=== PATIENT | male | born 1950 | race Asian ===

== ENCOUNTER 2020-11-29 13:48 | Emergency (ER) | payer OTHER ==
[~2020-11-29] VITALS: Ht 182.9 cm; Wt 106.6 kg
[2020-11-29 13:55] VITALS: TEMP 98.2
[2020-11-29 14:40] LABS: PLATELET COUNT 130 K/uL (142-355)
[2020-11-29 14:49] LABS: POTASSIUM 3.7 mmol/L (3.6-5.2); SODIUM 137 mmol/L (136-145)
[2020-11-29 15:11] LABS: PARTIAL THROMBOPLASTIN TIME 27.9 SECONDS (24.5-33.6)
[2020-11-29 17:45] VITALS: BP 116/68
== END 2020-11-29 18:15 | disposition home or self-care (01) ==
LOC: ED 13:48
PROVIDERS: Hospitalist
DX: J44.1 Chronic obstructive pulmonary disease with (acute) exacerbation (principal); J40 Bronchitis, not specified as acute or chronic; N18.9 Chronic kidney disease, unspecified; Z20.828 Contact with and (suspected) exposure to other viral communicable diseases
CPT/HCPCS: 36415; 36600; 80053; 82550; 82805; 83605; 83880; 84484; 85027; 85610; 85730; 87040; 87635; 87651; 93005; 96361; 96365; 96366; 96375; 99284; J1940; J1956; J2930; U0003